=== PATIENT | female | born 1965 | race African-American/Black ===

== ENCOUNTER 2020-04-19 00:18 | Emergency (ER) | payer OTHER ==
[~2020-04-19] VITALS: Ht 165.1 cm; Wt 56.7 kg
[2020-04-19] MEDS ORDERED: SUPER THERAVIT1 EACH PO (00:54)
[2020-04-19] MEDS ORDERED: IRON159 MG PO (00:54)
[2020-04-19 01:10] LABS: AMP/METHAMP Negative (Negative); BARBITURATES Negative (Negative); BENZODIAZEPINES Negative (Negative); COCAINE Negative (Negative); METHADONE Negative (Negative); OPIATES Negative (Negative); PCP Negative (Negative); THC Negative (Negative)
[2020-04-19 01:11] LABS: ABSOLUTE BASOPHILS 0.1 thou/uL (0.0-0.2); ABSOLUTE EOSINOPHILS 0.1 thou/uL (0.0-0.7); ABSOLUTE LYMPHOCYTES 2.7 thou/uL (0.8-5.3); ABSOLUTE MONOCYTES 0.7 thou/uL (0.0-1.2); ABSOLUTE NEUTROPHILS 5.9 thou/uL (1.6-8.1); BASOPHILS 0.9 %; EOSINOPHILS 0.9 %; HEMATOCRIT 38.4 % (37.0-47.0); HEMOGLOBIN 13.3 gm/dL (12.0-15.0); LYMPHOCYTES 28.5 %; MCH 24.5 pg (26.0-34.0); MCHC 34.6 g/dL (28.0-37.0); MCV 70.8 fL (80.0-100.0); MONOCYTES 7.3 %; NUCLEATED RBCS 0 /100WBC; PLATELET COUNT* 223 thou/uL (150-400); POLYS 62.4 %; RBC 5.43 mil/uL (4.20-5.00); RDW-CV 16.1 % (10.5-14.5); WBC 9.4 thou/uL (4.0-11.0)
[2020-04-19 01:13] LABS: URINE BILIRUBIN NEGATIVE (Negative); URINE BLOOD NEGATIVE (Negative); URINE CLARITY CLEAR; URINE COLOR YELLOW; URINE GLUCOSE-RANDOM NEGATIVE (Negative); URINE KETONES NEGATIVE (Negative); URINE LEUKOCYTES-REFLEX NEGATIVE (Negative); URINE NITRITE-REFLEX NEGATIVE (Negative); URINE PROTEIN NEGATIVE (Negative); URINE UROBILINOGEN 0.2 E.U./dl (0.2-1.0)
[2020-04-19 01:14] LABS: CALCIUM 9.2 mg/dL (8.5-10.1); CREATININE 0.9 mg/dL (0.6-1.3)
[2020-04-19 01:19] LABS: ALBUMIN 3.9 g/dL (3.4-5.0); ALCOHOL 122 mg/dL (<10); SALICYLATE 2.9 mg/dL (2.8-20.0); TOTAL BILIRUBIN 1.2 mg/dL (<0.1-1.0); TOTAL PROTEIN 7.5 g/dL (6.4-8.2)
[2020-04-19 01:20] LABS: ACETAMINOPHEN < 2 ug/mL (10-30)
[2020-04-19 03:51] LABS: PLATELET ESTIMATE ADEQUATE; TARGET CELLS 2+
[2020-04-19 03:52] LABS: HYPOCHROMASIA 1+; MICROCYTES 2+
[2020-04-19] MEDS ORDERED: EPIPEN 2-P0.3 MG/0.3 IM (06:35)
[2020-04-19 12:45] VITALS: BP 124/82
== END 2020-04-19 12:50 ==
LOC: M.ERS 00:18
PROVIDERS: Emergency Medicine
DX: F10.10 Alcohol abuse, uncomplicated (principal); Y90.6 Blood alcohol level of 120-199 mg/100 ml; R45.6 Violent behavior; R45.851 Suicidal ideations; Z20.822 Contact with and (suspected) exposure to COVID-19; F17.210 Nicotine dependence, cigarettes, uncomplicated; Z86.2 Personal history of diseases of the blood and blood-forming organs and certain disorders involving the immune mechanism; Z79.899 Other long term (current) drug therapy